=== PATIENT | female | born 1985 | race African-American/Black ===

== ENCOUNTER 2017-08-01 22:14 | Emergency (ER) | payer OTHER ==
[~2017-08-01] VITALS: Ht 165.1 cm; Wt 88.0 kg
[~2017-08-01 22:14] MED LIST: DOXY100T17 OR; METR-1 PO; Z.0.NO CURRENT MEDS
[2017-08-01 22:16] VITALS: BP 154/90; PULSE 76; RESP 16; TEMP 98.2; O2SAT 100
[2017-08-02] MEDS ORDERED: CYCL1TAB29 PO (00:35)
[2017-08-02] MEDS ORDERED: DICL75TA PO (00:35)
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
[2017-08-02] MEDS ORDERED: IBUPROFEN 600 MG TAB PO ONE (00:45)
[2017-08-02] MEDS ORDERED: CYCLOBENZAPRINE HCL 10 MG TAB PO ONE (00:45)
== END 2017-08-02 01:01 | disposition home or self-care (01) ==
LOC: NEPD 22:14
DX: M54.9 Dorsalgia, unspecified (principal); V49.60XA Unspecified car occupant injured in collision with unspecified motor vehicles in traffic accident, initial encounter; Z79.899 Other long term (current) drug therapy
CPT/HCPCS: 99284